=== PATIENT | female | born 1980 | race Caucasian/White ===

== ENCOUNTER 2021-01-03 12:29 | Emergency (ER) | payer MEDICAID ==
[~2021-01-03] VITALS: Ht 162.6 cm; Wt 59.0 kg
[2021-01-03 12:34] VITALS: BP 133/72
--- NOTE | 2021-01-03 12:45 | NUR ---
Patient is a 40 y/o female referred from Urgent Care for elevated WBC and abdominal pain. Patient c/c RUQ abdominal pain, chills, nausea and vomiting x3 days. Pain is 10/10. Patient denies CP, SOB, headache, blurry vision or dysuria. PMH: none per patient Meds: none, per patient Allergies: none, per patient
[2021-01-03] MEDS ORDERED: ONDANSETRON 4 MG/2 ML VIAL IVP ONE (12:50)
[2021-01-03] MEDS ORDERED: KETOROLAC 30 MG/ML VIAL IVP ONE (12:50)
--- NOTE | 2021-01-03 12:55 | NUR ---
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
[2021-01-03 13:22] LABS: BASOPHILS # (AUTO) 0.1 K/uL (0.00-0.22); BASOPHILS % (AUTO) 1.3 % (0.0-2.0); EOSINOPHILS # (AUTO) 0.1 K/uL (0-0.4); EOSINOPHILS % (AUTO) 1.2 % (0.0-4.0); HEMATOCRIT 33.8 % (36-48); HEMOGLOBIN 11.5 g/dL (12.0-16.0); LYMPHOCYTES # (AUTO) 2.3 K/uL (2.5-16.5); LYMPHOCYTES % (AUTO) 24.7 % (20.5-51.1); MEAN CORPUSCULAR HEMOGLOBIN 32 pg (27-31); MEAN CORPUSCULAR HGB CONC 34 g/dL (33-37); MEAN CORPUSCULAR VOLUME 92.8 fL (80-94); MONOCYTES # (AUTO) 0.5 K/uL (0.8-1.0); MONOCYTES % (AUTO) 5.4 % (1.7-9.3); NEUTROPHILS # (AUTO) 6.3 K/uL (1.8-7.7); NEUTROPHILS % (AUTO) 67.4 % (42.2-75.2); PLATELET COUNT (AUTO) 521 K/uL (140-450); RED BLOOD CELL COUNT(AUTO) 3.64 MIL/uL (4.20-5.40); RED CELL DISTRIBUTION WIDTH 14.1 % (11.6-13.7); WHITE BLOOD COUNT (AUTO) 9.3 K/uL (4.8-10.8)
[2021-01-03 13:27] LABS: BILIRUBIN,URINE NEGATIVE (NEGATIVE); BLOOD, URINE 3+ (NEGATIVE); COLOR,URINE YELLOW (YELLOW); LEUKOCYTE ESTERASE ,URINE NEGATIVE (NEGATIVE); NITRITE, URINE NEGATIVE (NEGATIVE); UGLUCOSE NEGATIVE (NEGATIVE)
[2021-01-03 13:30] LABS: ANION GAP 11.6 (8-16); CARBON DIOXIDE 25.3 mmol/L (21-32); CREATININE 0.8 mg/dL (0.6-1.3); POTASSIUM 3.9 mmol/L (3.5-5.1)
[2021-01-03 13:34] LABS: APPEARANCE,URINE SLIGHTLY HAZY (CLEAR)
[2021-01-03 13:36] LABS: ALBUMIN 2.9 g/dL (3.4-5.0); TOTAL BILIRUBIN 0.2 mg/dL (0.0-1.0)
[2021-01-03 13:36] LABS: WBC,URINE 0-5 /HPF (0-5)
[2021-01-03] MEDS ORDERED: MORPHINE SULFATE 4 MG/ML SYR IVP ONE (14:20)
[2021-01-03] MEDS ORDERED: IBUP-2213 PO (14:59)
[2021-01-03] MEDS ORDERED: ACET-8386 PO (14:59)
[2021-01-03] MEDS ORDERED: ONDA8TAB87 PO (14:59)
[2021-01-03] MEDS ORDERED: OMEP40EC24 PO (14:59)
[2021-01-03 15:37] VITALS: BP 133/72
--- NOTE | 2021-01-03 15:38 | NUR ---
Patient discharged with v/s stable. Written and verbal after care instructions given and explained. Patient alert, oriented and verbalized understanding of instructions. Ambulatory with steady gait. All questions addressed prior to discharge. ID band removed. Patient advised to follow up with PMD. Rx of ZOFRAN, OMEPRAZOLE, AND HYDROCODONE given. Patient educated on indication of medication including possible reaction and side effects. Opportunity to ask questions provided and answered.
== END 2021-01-03 15:38 | disposition home or self-care (01) ==
LOC: MED 12:29
DX: K80.20 Calculus of gallbladder without cholecystitis without obstruction (principal)
CPT/HCPCS: 36415; 76705; 80053; 81001; 81025; 83690; 85025; 96374; 96375; 99284; J1885; J2270; J2405